=== PATIENT | male | born 1960 | race Caucasian/White ===

== ENCOUNTER 2017-01-20 08:50 | Day surgery (SDC) | payer BC ==
[2017-01-20] MEDS ORDERED: LIDOCAINE 2% MDV (20MG/ML) 20ML VIAL IV ONE (14:00)
[2017-01-20] MEDS ORDERED: MIDAZOLAM HCL 2MG/2ML VIAL IV ONE (14:00)
[2017-01-20] MEDS ORDERED: PROPOFOL 10 MG/ML VIAL IV ONE (14:00)
--- NOTE | 2017-01-26 10:20 | Operative Note ---
DATE OF SURGERY: 01/20/2017 REFERRING PHYSICIAN: Richard Zabala D.O. POSTOPERATIVE DIAGNOSES: 1. An 8 mm sessile polyp in the sigmoid colon that was removed by cold snare. 2. Otherwise normal colon. OPERATION: COLONOSCOPY. Surgeon: Rosie Phelps D.O. Indication for Procedure: This is a 56-year-old male with average risk for colorectal cancer who presented for screening colonoscopy. Sedation: Sedation was per Anesthesia. Pulse oximetry was monitored throughout the duration of the procedure to maintain O2 saturation of 90% or greater. Supplemental oxygen was administered via nasal cannula. Cardiac and vital signs were monitored throughout the duration of the procedure, and they were stable. Description of the procedure of colonoscopy and risks and benefits of the procedure including the risk of bleeding and perforation, among others, were explained to the patient. He voiced understanding and consented to have the procedure done. Physical exam was performed, and the patient was found stable for sedation. PROCEDURE: The patient was placed in the left lateral position and sedation was initiated. Digital rectal exam was performed and showed small external hemorrhoids with no palpable rectal masses. The Olympus PCF-180AL colonoscope was then inserted into the rectum under direct visualization and advanced to the cecum without difficulty. The ileocecal valve and appendiceal orifice were identified and photographed. The colonic mucosa was carefully examined upon insertion of the colonoscope. There was an 8 mm sessile polyps in the sigmoid colon that was noted and removed by cold snare. There were no other lesions noted. The colonoscope was then withdrawn while carefully examining the colonic mucosal surfaces. No other lesions were noted. In the rectum, retroflexion was performed and grade 1 internal hemorrhoids were noted. The colonoscope was then withdrawn and the procedures were terminated. The patient tolerated the procedures well without immediate complications. He remained with stable vital signs and was transferred to the Recovery Room. PLAN AND RECOMMENDATIONS: 1. He is to be on a high-fiber diet. 2. He is to have a repeat colonoscopy for surveillance in 5 or 10 years depending on histology of the polyp. As always, thank you for allowing me to participate in the care of your patient. Rosie Phelps MD CC: RICHARD ZABALA D.O. [facility] CLINICMarlyn
== END 2017-01-20 11:19 | disposition home or self-care (01) ==
LOC: HOP 08:50
PROVIDERS: ATTEND Internal Medicine Gastroenterology
DX: Z12.11 Encounter for screening for malignant neoplasm of colon (principal); D12.5 Benign neoplasm of sigmoid colon; I10 Essential (primary) hypertension

== ENCOUNTER 2019-09-09 06:53 | Day surgery (SDC) | payer BC ==
[~2019-09-09 06:53] MED LIST: ACETAMINOPHEN 1,000 MG/100 ML BTL IVPB ONE; CEFAZOLIN 2 Gram 2 GM/50 ML BAG IVPB ONE; FAMOTIDINE 20MG TABLET PO ONE; MECLIZINE 25 MG TABLET PO ONE; METOCLOPRAMIDE 10 MG TABLET PO ONE
[2019-09-09] MEDS ORDERED: LIDOCAINE 2% MDV (20MG/ML) 20ML VIAL IV ONE (06:54)
[2019-09-09] MEDS ORDERED: PROPOFOL 10 MG/ML VIAL IV ONE (06:54)
[2019-09-09] MEDS ORDERED: DESFLURANE 240 ML BTL INH ONE (06:54)
[2019-09-09] MEDS ORDERED: KETOROLAC 30 MG/ML VIAL IVP ONE (06:54)
[2019-09-09] MEDS ORDERED: MIDAZOLAM HCL 2MG/2ML VIAL IV ONE (06:54)
[2019-09-09] MEDS ORDERED: SUFENTANIL CITRATE 50 MCG/ML AMPUL IV ONE (06:54)
[2019-09-09] MEDS ORDERED: ONDANSETRON HCL IV 4 MG/2 ML VIAL IVP ONE (06:54)
[2019-09-09] MEDS ORDERED: RINGERS SOLUTION,LACTATED 1,000 ML IV ONE (07:40)
[2019-09-09] MEDS ORDERED: BUPIVACAINE 0.25% W/EPI MPF 30ML VIAL SQ ONE (08:48)
--- NOTE | 2019-09-10 08:30 | Operative Note ---
DATE OF SURGERY: 09/09/2019 SURGEON: Jere Nichols DO PREOPERATIVE DIAGNOSIS: Incarcerated umbilical hernia. POSTOPERATIVE DIAGNOSIS: Incarcerated umbilical hernia. OPERATION: Open umbilical herniorrhaphy with mesh. PROCEDURE: The patient is a 59-year-old male who is brought to the operating room and placed in a supine position. General anesthesia was administered per the department of anesthesia. The patient's abdomen was prepped and draped in the usual fashion. At this time, adequate timeout was performed. He did receive preoperative antibiotic as well as DVT prophylaxis. At this time, the periumbilical region was anesthetized with a total of 10 mL of 0.25% Sensorcaine with epinephrine. A 4 cm curvilinear supraumbilical incision was made. This was carried down to the anterior rectus fascia. The umbilical stalk was encircled and dissected free from the underlying hernia sac. Clean circumferential fascial edges were obtained. The hernia sac was then amputated and passed off the field. The hernia measured about 1 cm. At this time, a 6.[address] mesh was obtained. This was placed in an intraperitoneal position with excellent overlap of the hernia on all sides. The upper skirt was sutured to the fascia with 2-0 Vicryl in 6 spots. The tails overlapped the fascia and were sutured in place as well. At this time, the skin was tacked down to the fascia with 3-0 Vicryl and the wound was closed with 3-0 and 4-0 Vicryl. He was taken to the recovery room in stable condition. FINDINGS ON SURGERY: Incarcerated umbilical hernia repaired as above. [facility]STAND
== END 2019-09-09 09:49 | disposition home or self-care (01) ==
LOC: SUR 06:53
PROVIDERS: ATTEND Surgery
DX: K42.0 Umbilical hernia with obstruction, without gangrene (principal); I10 Essential (primary) hypertension; E03.9 Hypothyroidism, unspecified
CPT/HCPCS: J1885; J2405; J7120